=== PATIENT | male | born 1950 | race Caucasian/White ===

== ENCOUNTER → 2017-06-19 | Day surgery (SDC) | payer OTHER ==
[~2017-06-19] MED LIST: ASPIRIN EC 325 MG TAB PO ONE; ATROPINE SULFATE 1 MG/10 ML SYR IVP PRN; DIAZEPAM 5 MG TAB ONE; DIAZEPAM 5 MG TAB PO ONE; FAMOTIDINE 20 MG TAB ONE; FAMOTIDINE 20 MG TAB PO ONE; HYDROCODONE/APAP 5/325 TAB PO PRN; IOPAMIDOL (ISOVUE-370) 150 ML BTL IV ONE; LIDOCAINE 1% 300 MG/30 ML SDV ONE; MIDAZOLAM 2 MG/2 ML VIAL ONE; NITROGLYCERIN 0.4 MG BTL SL PRN; NS 1,000 ML IV ONE; ONDANSETRON 4 MG/2 ML VIAL IVP PRN; OXYCODONE/APAP 5/325 TAB PO PRN; diphenhydrAMINE 25 MG CAP PO ONE; fentaNYL 100 MCG/2 ML INJ ONE
--- NOTE | 2017-06-19 08:51 | CPEKG ---
Heart Rate: 54 RR Interval: 1111 P-R Interval: 208 QRSD Interval: 80 QT Interval: 424 QTC Interval: 402 P [place]: 60 QRS [place]: 27 T Wave [place]: 139 EKG Severity - ABNORMAL ECG - EKG Impression: SINUS RHYTHM EKG Impression: CONSIDER ANTERIOR INFARCT EKG Impression: NONSPECIFIC T ABNORMALITIES, LATERAL LEADS Electronically Signed By: Wilver Hodges 21-Jun-2017 13:08:58
[2017-06-19 09:12] LABS: PLATELET COUNT 215 10^3/uL (150-400)
[2017-06-19 09:21] LABS: INR 1.01 (0.83-1.16); PROTIME(PATIENT) 13.5 SEC (12.0-15.0)
--- NOTE | 2017-06-19 09:49 | PDPROPOC ---
Sedation Plan of Care Sedation Plan of Care: vital signs stable, mental status noted, patient educated of risks, benefits, alternatives, patient can tolerate sedation ASA Classification: ASA 2 Planned drugs: fentanyl, midazolam Mallampati Score: Class 2 Mallampati Reference Image: Patient passed 3-3-2 rule?: Yes
--- NOTE | 2017-06-19 09:49 | PDHPUP ---
History & Physical Update H&P update statement: This history and physical update is based on an assessment of the patient which was completed after admission or registration (within 24 hours), but prior to the surgery/procedure. H&P update: H&P reviewed & patient examined, no change in patient's condition since H&P completed
--- NOTE | 2017-06-19 11:28 | GPN ---
[f rep st] PROCEDURE NOTE DATE OF PROCEDURE: 06/19/2017 PROCEDURE: Diagnostic left heart catheterization. INDICATION FOR PROCEDURE: The patient is a pleasant 66-year-old gentleman with a known history of co ronary artery disease with previous PCI to the LAD x2 in 2007. He had known residual disease in the right coronary artery. Recent nuclear stress test demonstrated a new area of inferior lateral ischem ia consistent with ischemia potentially in the right coronary artery. There are also new findings of transient ischemic dilatation. In the setting of a known history of coronary artery disease, residu al right coronary artery disease and new abnormal findings of moderate area of ischemia and risk find ing of transient ischemic dilatation, decision was made to pursue diagnostic left heart catheterizati on. DESCRIPTION OF PROCEDURE: After informed consent was obtained, the patient was brought to the [facility] catheterization lab, where he was prepped and draped in a sterile fashion. Using a micropuncture t echnique, a modified Seldinger technique, a 6-Gambian catheter was placed in the right common femoral artery without complications. JL4 catheter was used to take images of the left coronary anatomy in m ultiple projections. The JL4 catheter was exchanged over a guidewire for a JR4 catheter. JR4 cathet er was used to take images of the right coronary anatomy in multiple projections. JR4 catheter was r emoved over a guidewire for an angled pigtail catheter. Angled pigtail catheter was used to cross th e aortic valve. Left ventriculogram was performed, LVEDP was assessed, and aortic valve gradient was assessed on pull-back. FINDINGS: 1. Left main normal size and caliber. Bifurcates into left anterior descending and left circumflex coronary artery. There is no evidence of coronary disease within the left main. 2. Left anterior descending demonstrates patent stents in the proximal left anterior descending solis nary artery. There is no evidence of coronary disease within the distal segments of the LAD. There is mild luminal irregularities in the first and second diagonal branches. 3. Circumflex artery is a nondominant vessel. There is mild luminal irregularities in the proximal circumflex vessel with no evidence of flow-limiting coronary artery disease. 4. The right coronary artery is a dominant vessel and large caliber that bifurcates into PDA and PLV branch. There are mild luminal irregularities in the proximal mid segment of the right coronary art freddie. There is a 30% to 40% narrowing in the PDA branch just distal to the bifurcation with the PLV. These findings look essentially unchanged compared to previous study in 2008. 5. Hemodynamics. LVEF 55%. LVEDP 11 mmHg. Aortic valve gradient none. CONCLUSION: 1. Patent stents to the left anterior descending placed in 2008. 2. Mild luminal irregularities with a nondominant circumflex. 3. Mild to moderate luminal irregularities in the proximal mid right coronary artery; 30% to 40% jermain rowing within the proximal portion of the posterior descending artery just distal to the bifurcation of the posterior left ventricular branch in the dominant right coronary artery. Findings are essenti ally unchanged compared to study in 2008. 4. Normal left ventricular function. 5. No indication for intervention. PLAN: We will continue aggressive medical management of known coronary artery disease. /[id number]/MODL
== END | disposition home or self-care (01) ==
LOC: FCATH 08:24
PROVIDERS: ATTEND Internal Medicine Cardiovascular Disease
PROC: 4A023N7 Measurement of Cardiac Sampling and Pressure, Left Heart, Percutaneous Approach (ICD-10-PCS; principal; 2017-06-19)
PROC: B2111ZZ Fluoroscopy of Multiple Coronary Arteries using Low Osmolar Contrast (ICD-10-PCS; principal; 2017-06-19)
PROC: B2151ZZ Fluoroscopy of Left Heart using Low Osmolar Contrast (ICD-10-PCS; principal; 2017-06-19)
DX: I25.10 Atherosclerotic heart disease of native coronary artery without angina pectoris (principal); R94.39 Abnormal result of other cardiovascular function study; I25.2 Old myocardial infarction; I77.9 Disorder of arteries and arterioles, unspecified; E78.5 Hyperlipidemia, unspecified; I10 Essential (primary) hypertension; M10.9 Gout, unspecified; Z87.891 Personal history of nicotine dependence; Z82.49 Family history of ischemic heart disease and other diseases of the circulatory system; Z95.5 Presence of coronary angioplasty implant and graft
CPT/HCPCS: J1644; J2250; J3010; Q9967